=== PATIENT | female | born 1985 ===

== ENCOUNTER 2018-01-22 09:15 | Outpatient (CLI) | payer OTHER ==
[~2018-01-22] VITALS: Ht 144.8 cm; Wt 60.3 kg
== END 2018-01-22 09:30 | disposition home or self-care (01) ==
LOC: OFIC 805 09:15
DX: H61.23 Impacted cerumen, bilateral (principal); H66.001 Acute suppurative otitis media without spontaneous rupture of ear drum, right ear

== ENCOUNTER 2018-01-25 11:22 | Outpatient (CLI) | payer OTHER ==
[~2018-01-25] VITALS: Ht 121.9 cm; Wt 60.3 kg
== END 2018-01-25 11:40 | disposition home or self-care (01) ==
LOC: OFIC 805 11:22
DX: H92.01 Otalgia, right ear (principal); H60.8X3 Other otitis externa, bilateral; H61.23 Impacted cerumen, bilateral

== ENCOUNTER 2018-02-01 12:32 | Outpatient (CLI) | payer OTHER ==
[~2018-02-01] VITALS: Ht 121.9 cm; Wt 60.3 kg
== END 2018-02-01 12:40 | disposition home or self-care (01) ==
LOC: OFIC 805 12:32
DX: H60.8X3 Other otitis externa, bilateral (principal); H92.01 Otalgia, right ear

== ENCOUNTER 2019-11-21 10:53 | Outpatient (CLI) | payer OTHER ==
[2019-11-21] MEDS ORDERED: CIPRODEX OTIC7.5 ML OT (11:29)
== END 2019-11-21 13:00 | disposition home or self-care (01) ==
LOC: OFIC 805 10:53
DX: H92.01 Otalgia, right ear (principal); H60.8X1 Other otitis externa, right ear; H61.23 Impacted cerumen, bilateral; J34.2 Deviated nasal septum

== ENCOUNTER 2019-12-08 10:20 | Outpatient (CLI) | payer OTHER ==
[~2019-12-08] VITALS: Ht 121.9 cm; Wt 62.6 kg
[~2019-12-08 10:20] MED LIST: CIPRODEX OTIC7.5 ML OT
== END 2019-12-08 14:35 | disposition home or self-care (01) ==
LOC: OFIC 805 10:20
PROVIDERS: ATTEND Otolaryngology
DX: H60.8X1 Other otitis externa, right ear (principal); H61.23 Impacted cerumen, bilateral